=== PATIENT | male | born 1965 | race Caucasian/White ===

== ENCOUNTER 2018-03-17 16:08 | Emergency (ER) | payer OTHER ==
[~2018-03-17] VITALS: Ht 177.8 cm; Wt 72.6 kg
== END 2018-03-17 17:28 | disposition home or self-care (01) ==
LOC: ER 16:08
DX: S61.211A Laceration without foreign body of left index finger without damage to nail, initial encounter (principal); W45.8XXA Other foreign body or object entering through skin, initial encounter; Y93.89 Activity, other specified; Y92.89 Other specified places as the place of occurrence of the external cause; Y99.8 Other external cause status

== ENCOUNTER → 2018-03-25 | Emergency (ER) | payer OTHER ==
[~2018-03-25] VITALS: Ht 177.8 cm; Wt 74.8 kg
== END | disposition left against medical advice (07) ==
LOC: ER 13:04
DX: Z53.21 Procedure and treatment not carried out due to patient leaving prior to being seen by health care provider (principal)

== ENCOUNTER 2018-03-30 11:59 | Emergency (ER) | payer OTHER ==
[~2018-03-30] VITALS: Ht 177.8 cm; Wt 72.6 kg
== END 2018-03-30 13:50 | disposition home or self-care (01) ==
LOC: ER 11:59
DX: Z48.02 Encounter for removal of sutures (principal)

== ENCOUNTER 2021-03-11 17:25 | Emergency (ER) | payer OTHER ==
[~2021-03-11] VITALS: Ht 167.6 cm; Wt 64.9 kg
== END 2021-03-11 22:32 | disposition home or self-care (01) ==
LOC: ER 17:25
DX: K62.89 Other specified diseases of anus and rectum (principal); Z03.818 Encounter for observation for suspected exposure to other biological agents ruled out; R19.7 Diarrhea, unspecified